=== PATIENT | male | born 1995 | race Two or more races ===

== ENCOUNTER 2022-12-03 16:57 | Emergency (ER) | payer OTHER ==
[~2022-12-03] VITALS: Ht 170.2 cm; Wt 59.4 kg
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
--- NOTE | 2022-12-03 17:15 | NUR ---
AT BEDSIDE FOR EVAL
--- NOTE | 2022-12-03 19:20 | NUR ---
Patient discharged to home in stable condition. Written and verbal after care instructions given. Patient verbalizes understanding of instruction.
[2022-12-03 19:21] VITALS: BP 125/80
== END 2022-12-03 19:20 | disposition home or self-care (01) ==
LOC: ER 17:43
DX: R07.81 Pleurodynia (principal); V89.2XXA Person injured in unspecified motor-vehicle accident, traffic, initial encounter; Y93.89 Activity, other specified; Y92.89 Other specified places as the place of occurrence of the external cause; Y99.8 Other external cause status
CPT/HCPCS: 71100-TC